=== PATIENT | female | born 1970 | race Caucasian/White ===

== ENCOUNTER 2020-02-10 12:49 | Outpatient (CLI) | payer OTHER ==
[~2020-02-10 12:49] MED LIST: CLINDAMYCIN; LISINOPRIL10 MG; PERCOCET 5/3251 TAB PO
== END 2020-02-10 13:08 | disposition home or self-care (01) ==
LOC: TOM 12:49
PROVIDERS: ATTEND Urology
DX: N20.0 Calculus of kidney (principal); E34.8 Other specified endocrine disorders; N83.292 Other ovarian cyst, left side

== ENCOUNTER 2020-04-27 10:49 | Outpatient (CLI) | payer OTHER | END 2020-04-27 11:00 | disposition home or self-care (01) | LOC: RAD 10:49 | PROVIDERS: ATTEND Urology | DX: R07.89 Other chest pain (principal); N20.0 Calculus of kidney ==

== ENCOUNTER 2020-05-03 09:39 | Outpatient (CLI) | payer OTHER | END 2020-05-03 10:02 | disposition HB | LOC: TOM 09:39 | DX: I10 Essential (primary) hypertension (principal); N20.0 Calculus of kidney; I31.8 Other specified diseases of pericardium ==

== ENCOUNTER 2021-05-17 08:52 | Outpatient (CLI) | payer OTHER | END 2021-05-17 08:59 | disposition home or self-care (01) | LOC: SONOGRAMA 08:52 | PROVIDERS: ATTEND Pathology Anatomic Pathology & Clinical Pathology | DX: E04.2 Nontoxic multinodular goiter (principal) ==